=== PATIENT | female | born 1985 | race African-American/Black ===

== ENCOUNTER 2019-06-23 21:11 | Emergency (ER) | payer SELFPAY ==
[~2019-06-23] VITALS: Ht 170.2 cm; Wt 70.0 kg
[2019-06-23] MEDS ORDERED: ACET-2178 PO (21:22)
[2019-06-23 23:09] VITALS: BP 124/78
== END 2019-06-24 01:40 | disposition home or self-care (01) ==
LOC: ER 23:54
DX: J06.9 Acute upper respiratory infection, unspecified (principal); M79.10 Myalgia, unspecified site; R19.7 Diarrhea, unspecified; R50.9 Fever, unspecified; Z88.0 Allergy status to penicillin; Z88.1 Allergy status to other antibiotic agents; Z88.6 Allergy status to analgesic agent
CPT/HCPCS: 99283

== ENCOUNTER 2022-01-11 19:42 | Emergency (ER) | payer OTHER ==
[~2022-01-11] VITALS: Ht 167.6 cm; Wt 62.0 kg
[~2022-01-11 19:42] MED LIST: TOPUD PO
[2022-01-11 19:47] VITALS: BP 142/76
[2022-01-11 21:07] LABS: HEMOGLOBIN. 12.2 g/dL (12.0-16.0); MEAN CORPUSCULAR HEMOGLOBIN 27.2 pg (28.0-32.0); MEAN CORPUSCULAR VOLUME 82.4 fL (81.0-99.0); MEAN PLATELET VOLUME 8.4 fl (7.4-10.4); PLATELET 244 x1000/uL (130-400); RED BLOOD CELL COUNT 4.48 mill/uL (4.2-5.4); RED CELL DISTRIBUTION WIDTH 14.6 % (11.6-14.6)
[2022-01-11 21:14] LABS: CHLORIDE 107 mEq/L (98-107); HCG SCREEN NEGATIVE
[2022-01-11 21:29] LABS: PLATELET ESTIMATE NORMAL
[2022-01-11] MEDS ORDERED: LORAZEPAM 2MG/ML CPJ IV ONE (22:15)
[2022-01-11] MEDS ORDERED: LORAZEPAM 1MG TABLET PO ONE (22:15)
== END 2022-01-11 22:26 | disposition home or self-care (01) ==
LOC: ER 19:42
DX: R00.2 Palpitations (principal); R06.00 Dyspnea, unspecified; Z88.0 Allergy status to penicillin; Z88.3 Allergy status to other anti-infective agents; Z88.6 Allergy status to analgesic agent
CPT/HCPCS: 36415; 71045; 80053; 84484; 84703; 85025; 85379; 93005; 99285